=== PATIENT | male | born 1995 | race Caucasian/White ===

== ENCOUNTER 2018-10-24 19:16 | Emergency (ER) | payer OTHER ==
[~2018-10-24] VITALS: Ht 195.6 cm; Wt 90.7 kg
[~2018-10-24 19:16] MED LIST: AZIT200SU PO; AZIT250 PO; Anti-Diarrheal2 MG PO; CEPH500 PO; CETI10 PO; CODGUAEL PO; DIPH50 PO; IBUP400 PO; METCAR500 PO; NAPR500 PO; PRED10 PO; PRED20 PO; PROM25 PO; TRAM50 PO
[2018-10-24 20:36] LABS: Influenza A Negative (NEGATIVE); Influenza B Negative (NEGATIVE)
== END 2018-10-24 20:43 | disposition home or self-care (01) ==
LOC: ER 19:16
PROVIDERS: Physician Assistant
DX: J06.9 Acute upper respiratory infection, unspecified (principal)
CPT/HCPCS: 71046; 87081; 87430; 87804; 99283-25

== ENCOUNTER → 2020-04-27 | Outpatient (CLI) | payer OTHER ==
[2020-04-27 18:32] LABS: CHOL/HDL RATIO 3.8; Cholesterol 127 mg/dL (50-200); HDL Cholesterol 33 mg/dL (>39); Low Density Lipoprotein Chol 67 mg/dL (0-110); Triglycerides 133 mg/dL (30-140); Very Low Density Lipoprot Chol 26 mg/dL (6-28)
== END ==
LOC: LAB 17:06 → LAB SHORT 17:06
PROVIDERS: Nurse Practitioner Family
DX: Z00.00 Encounter for general adult medical examination without abnormal findings (principal); Z11.59 Encounter for screening for other viral diseases
CPT/HCPCS: 80061; 86803

== ENCOUNTER 2023-06-14 12:56 | Observation (INO) | payer BC, OTHER ==
[~2023-06-14] VITALS: Ht 195.6 cm; Wt 106.6 kg
[2023-06-14 13:27] LABS: BASOPHILS ABSOLUTE AUTO 0.04 K/mm3 (0.00-0.23); BASOPHILS PERCENT AUTO 0 % (0-2); EOSINOPHILS ABSOLUTE AUTO 0.05 K/mm3 (0.00-0.68); EOSINOPHILS PERCENT AUTO 0 % (0-6); Hematocrit 42.5 % (37.0-53.0); Hemoglobin 15.3 g/dL (13.5-17.5); IMMATURE GRAN ABSOLUTE AUTO 0.06 K/mm3 (0.00-0.10); IMMATURE GRAN PERCENT AUTO 0 % (0-1); LYMPHOCYTES ABSOLUTE AUTO 1.79 K/mm3 (0.84-5.20); LYMPHOCYTES PERCENT AUTO 11 % (21-46); MONOCYTES ABSOLUTE AUTO 0.86 K/mm3 (0.16-1.47); MONOCYTES PERCENT AUTO 5 % (4-13); Mean Corpuscular HGB 31.1 pg (26.0-34.0); Mean Corpuscular Volume 86 fL (80-100); Mean Platelet Volume 9.8 fL (9.1-12.4); NEUTROPHILS ABSOLUTE AUTO 13.81 K/mm3 (1.96-9.15); NEUTROPHILS PERCENT AUTO 83 % (41-73); Platelet Count 237 K/mm3 (150-400); RDW Coefficient Variation 12.1 % (11.7-14.2); RDW Standard Deviation 38.5 fL (35.1-46.3); Red Blood Cell Count 4.92 M/mm3 (4.30-5.90); White Blood Cell Count 16.61 K/mm3 (4.00-11.30)
[2023-06-14 13:48] LABS: Source, Urine Clean Catch
[2023-06-14 13:50] LABS: Albumin, Blood 4.3 g/dL (3.4-5.0); Albumin/Globulin Ratio 1.2 (0.8-1.8); Bun/Creatinine Ratio 9.1 (12.0-20.0); Calcium, Blood 9.2 mg/dL (8.5-10.1); Creatinine, Blood 0.99 mg/dL (0.60-1.20); Globulin, Blood 3.5 g/dL (2.2-4.0); Potassium, Blood 3.9 mmol/L (3.5-5.5); Total Protein, Blood 7.8 g/dL (6.4-8.2)
[2023-06-14 13:55] LABS: Appearance, Urine Clear (Clear); Bilirubin, Urine Neg (Neg); Blood, Urine 1+ (Neg); Color, Urine Yellow (P-Yellow); Glucose Qualitative, Urine Neg (Neg); Ketones, Urine Neg (Neg); Leukocyte Esterase, Urine Neg (Neg); Nitrite, Urine Neg (Neg); Protein, Urine Neg (Neg); Urobilinogen, Urine NORM (Normal)
[2023-06-14 14:12] LABS: Bacteria Many /hpf; Squamous Epithelial Cells Few /hpf (Few); White Blood Cells, Urine 0-2 /hpf (0-5)
[2023-06-14] MEDS ORDERED: AMPDEX30CR PO (14:49)
[2023-06-14 17:40] VITALS: BP 121/77
--- NOTE | 2023-06-14 17:45 | NUR ---
ARRIVAL TO SURGICAL UNIT PLEASANT, ALERT. ASSESSMENT DOCUMENTED. UP TO BATHROOM TO VOID. OK's BY DR PEREZ, LIQ's GIVEN. DENIES N/V. STATES PAIN IS TOLERABLE.
[2023-06-14 20:31] VITALS: BP 115/68
[2023-06-15] VITALS (12 sets, daily range): BP systolic 113–140; BP diastolic 69–94
--- NOTE | 2023-06-15 05:37 | NUR ---
SHIFT SUMMARY PT SCHEDULED FOR APPENDECTOMY TODAY. A&OX4, VERY PLEASANT YOUNG MAN. VSS, ABD PAIN 04/14 THIS A.M. MEDICATED 1X THIS SHIFT W/ 5MG OXY. PT INDEPENDANT TO BATHROOM, NOT USING URINAL. SPOUSE IN ROOM. SCD'S IN PLACE, IV INFUSING ABX AND FLUIDS. NO ACUTE CHANGES THIS SHIFT.
--- NOTE | 2023-06-15 08:30 | NUR ---
PT TO DAY SURGERY AT THIS TIME.
--- NOTE | 2023-06-15 09:34 | NUR ---
06/15/23 0934 Erum Sellers PAD UNDER PATIENT.
[2023-06-15] MEDS ORDERED: IBUP400 PO (10:01)
[2023-06-15] MEDS ORDERED: ACET325 PO (10:01)
[2023-06-15] MEDS ORDERED: OXAYDO5 M1 PO (10:02)
--- NOTE | 2023-06-15 11:07 | NUR ---
POST OP PT ALERT AND ORIENTED POST OP. VSS CURRENTLY. LAP SITES TO ABD X3 ARE CDI. PT REPORTS 8/10 PAIN TO ABD. FAUSTINA JELLO AND SIPS OF WATER. GIVEN 1 PAIN PILL. ENCOURAGING TO COUGH AND DEEP BREATH. FAMILY PRESENT AT BEDSIDE FOR SUPPORT. CALL LIGHT WITHIN REACH.
--- NOTE | 2023-06-15 13:54 | NUR ---
DISCHARGE PT EDUCATED ON AND RECEIVED PRINTED DISCHARGE INSTRUCTIONS AND VERBALIZED AN UNDERSTANDING. HARD RX FOR ROXICODONE ELECTRONICALLY SENT TO PHARMACY BY DR. PEREZ. SEGUNDO DINH. PT PAIN TOLERABLE WITH PO MEDS, PT AMBULATING, VOIDING, AND FAUSTINA REG DIET. PT GATHERING PERSONAL BELONGINGS AND HERE TO TAKE HIM HOME.
== END 2023-06-15 14:05 | disposition home or self-care (01) ==
LOC: ER 12:56 → SURS 12:57
PROVIDERS: Emergency Medicine; ADMIT Surgery
DX: K35.30 Acute appendicitis with localized peritonitis, without perforation or gangrene (principal); Z79.899 Other long term (current) drug therapy
CPT/HCPCS: 74177; 80053; 81001; 85025; 87086; 88304; 96361; 96365-59; 96375; 96375-59; 96376; 99285-25; A9270; G0378; J0295; J1100; J1170; J1885; J2405; J2704; J3010; J7030; J7120; Q9967

== ENCOUNTER 2025-07-25 10:24 | Day surgery (SDC) | payer BC, OTHER ==
[~2025-07-25] VITALS: Ht 195.6 cm; Wt 109.7 kg
[~2025-07-25 10:24] MED LIST changes: +ACET325 PO; +AMPDEX30CR PO; +EPINEPhrine HCl 1 MG / ML 30ML Vial ONE; +OXAYDO5 M1 PO; +Ultram50 MG PO
[2025-07-25] MEDS ORDERED: Tranexamic Acid 100 ML IV ONE (11:17)
--- NOTE | 2025-07-25 12:43 | NUR ---
07/25/25 1242 BEVERLEY SNYDER LATE ENTRY PT IN PRE OP, READY FOR OR. CALL LIGHT IN REACH. PT HAS IV TO R WRIST, SCD'S. AWAITING MD/ANES TO SEE PT FOR CONSULT. 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 PT CONFIRMS HE HAS RINSE KIT AND PRESCRIPTIONS. ENGAGED IN PRE OP/POST OP TEACHING AND ALL QUESTIONS ASKED AND ANSWERED. 1240 WENT TO CHECK ON OR, PT WAS SUPPOSED TO GO BACK AT 1230. PREVIOUS CASE IS TAKING LONGER THAN EXPECTED. ANTICIPATING AN ADDITIONAL 30-45 MINUTES OF WORK. PT IN PRE OP UPDATED ON THIS AND OFFERED TO CALL , GARETH, TO NOTIFY. SPOKE WITH SARA, ADVISED OF THE ABOVE. SHE VERBALIZED HER UNDERSTANDING. ENC HER TO CALL BACK FOR ANY UPDATES IF SHE WOULD LIKE.
[2025-07-25] MEDS ORDERED: Rocuronium Bromide 10 MG/ML 5ML Injection IV ONE (13:41)
[2025-07-25] MEDS ORDERED: FentaNYL Citrate 50 MCG/ML 2 ML Injection ONE (13:42)
[2025-07-25] MEDS ORDERED: Dexamethasone Sod Phos 10 MG/ML 1ML VIAL ONE (13:55)
[2025-07-25] MEDS ORDERED: Ondansetron HCl 2 MG / ML 2ML Vial ONE (13:55)
[2025-07-25] MEDS ORDERED: Lidocaine 2%-Epineph 1:200000 20 ML SDV INJ ONE (14:02)
[2025-07-25] MEDS ORDERED: Sugammadex Sodium 200 MG/2ML SDV (100 MG/ML) ONE (14:19)
--- NOTE | 2025-07-25 15:15 | NUR ---
07/25/25 1515 YAS LUND ORAL AIRWAY UTILIZED 1508 BY [facility].JXP PER VO DR.SPARLIN Page FACETENT O2 15L/MIN AND JAW THRUST BY ANES. END NOTE RDS
[2025-07-25 16:29] VITALS: BP 112/92
--- NOTE | 2025-07-25 16:30 | NUR ---
07/25/25 1630 YAS LUND PT STATES ALT VISION IN R EYE: "BLURRY W DOUBLE VISION ON JUST RIGHT SIDE" DR. REILLY NOTIED-PT OKD TO DC-TO OBSERVE AND REPORT TOMORROW SHOULD VISION NOT RETURN TO BASELINE PER DR. REILLY. END NOTE RDS
== END 2025-07-25 16:20 | disposition home or self-care (01) ==
LOC: ORSCSDS 10:24
PROVIDERS: Otolaryngology
PROC: 09BM0ZZ Excision of Nasal Septum, Open Approach (ICD-10-PCS; principal; 2025-07-25 12:30)
PROC: 09SL0ZZ Reposition Nasal Turbinate, Open Approach (ICD-10-PCS; principal; 2025-07-25 12:30)
DX: J34.3 Hypertrophy of nasal turbinates (principal); J34.2 Deviated nasal septum; F90.9 Attention-deficit hyperactivity disorder, unspecified type; Z79.899 Other long term (current) drug therapy
CPT/HCPCS: J0165; J1100; J2405; J2704; J3010